=== PATIENT | female | born 1980 | race Caucasian/White ===

== ENCOUNTER → 2023-12-24 06:19 | Day surgery (SDC) | payer OTHER, SELFPAY | LOC: GI 06:19 | PROVIDERS: ATTENDING PHYSICIAN Specialist | DX: R19.4 Change in bowel habit (principal); D12.0 Benign neoplasm of cecum; D12.3 Benign neoplasm of transverse colon; D12.2 Benign neoplasm of ascending colon | CPT/HCPCS: 45385; 45380; 88305 ==

== ENCOUNTER → 2024-10-04 14:02 | Outpatient (REF) | payer OTHER, SELFPAY | LOC: WDC 14:02 | PROVIDERS: ATTENDING PHYSICIAN Obstetrics & Gynecology Gynecology; FAMILY PHYSICIAN Student in an Organized Health Care Education/Training Program | DX: Z12.31 Encounter for screening mammogram for malignant neoplasm of breast (principal) | CPT/HCPCS: 77063; 77067 ==

== ENCOUNTER → 2024-11-14 13:12 | Outpatient (REF) | payer BC, SELFPAY | LOC: HWRAD 13:12 | PROVIDERS: ATTENDING PHYSICIAN Obstetrics & Gynecology Gynecology; FAMILY PHYSICIAN Student in an Organized Health Care Education/Training Program | DX: N93.9 Abnormal uterine and vaginal bleeding, unspecified (principal) | CPT/HCPCS: 76830; 76856 ==

== ENCOUNTER → 2024-11-22 14:51 | Outpatient (REF) | payer BC, SELFPAY | LOC: DHSLP 14:51 | PROVIDERS: ATTENDING PHYSICIAN Internal Medicine; FAMILY PHYSICIAN Student in an Organized Health Care Education/Training Program | DX: G47.33 Obstructive sleep apnea (adult) (pediatric) (principal) | CPT/HCPCS: 95800 ==

== ENCOUNTER → 2025-02-01 08:53 | Outpatient (REF) | payer BC, SELFPAY | LOC: DHSLP 08:53 | PROVIDERS: ATTENDING PHYSICIAN Internal Medicine; FAMILY PHYSICIAN Student in an Organized Health Care Education/Training Program | DX: G47.00 Insomnia, unspecified (principal) | CPT/HCPCS: 95810 ==

== ENCOUNTER → 2025-02-02 11:29 | Outpatient (REF) | payer BC, SELFPAY | LOC: DHSLP 11:29 | PROVIDERS: ATTENDING PHYSICIAN Internal Medicine; FAMILY PHYSICIAN Student in an Organized Health Care Education/Training Program | DX: G47.11 Idiopathic hypersomnia with long sleep time (principal) | CPT/HCPCS: 95805 ==

== ENCOUNTER 2025-08-01 15:26 | Emergency (ER) | payer BC, SELFPAY ==
[2025-08-01 15:29] VITALS: BP 103/56
[2025-08-01 15:57] LABS: Hematocrit 41.0 % (37.0-47.0); Hemoglobin 13.9 g/dL (12.0-16.0); Mean Corp Hgb Conc. 33.9 g/dL (33.0-37.0); Mean Corpuscular Volume 91.1 fL (81.0-99.0); Nucleated Red Blood Cells % 0 %; Platelet Count 177 10^3/uL (130-400); Red Cell Dist. Width 12.7 % (11.5-14.5)
[2025-08-01 16:11] LABS: HCG, Serum Qualitative Screen Negative
[2025-08-01 16:23] LABS: ALT (SGPT) 34 U/L (0-35); AST (SGOT) 32 U/L (14-36); Albumin 4.6 g/dl (3.5-5.0); Alkaline Phosphatase 44 U/L (38-126); Blood Urea Nitrogen 16 mg/dl (7-17); Calcium 9.3 mg/dl (8.4-10.2); Carbon Dioxide 27 mmol/L (22-30); Chloride 103 mmol/L (98-107); Glucose 113 mg/dl (70-99); Lipase 341 U/L (23-300); Potassium 4.1 mmol/L (3.5-5.1); Sodium 135 mmol/L (135-145); Total Protein 7.2 g/dl (6.3-8.2); eGFR > 60.00
--- NOTE | 2025-08-01 19:11 | ED.GENMED ---
History of Present Illness
General
Chief Complaint: Fainting/Passed Out
Source: patient
Exam Limitations: none
Time Seen by Provider: 08/01/25 19:04
History of Present Illness
History of Present Illness:
See MDM
Past History
Past History
ED Past Medical History: Hypothyroidism and Other (Irregular menses/infertility); Negative Asthma, HTN, Hypercholesterolemia or NIDDM
ED Past Surgical History: Gynecological (D&C)
Social History
Tobacco: Non-smoker
Alcohol: Occasional
Personal:
Living: with family
Employment: Not employed (Homemaker)
Family History
Family History: Other (Noncontributory)
Phy Exam
Physical Exam
Physical Exam:
See MDM
Course
Orders/Labs/Results
Orders:
Orders
08/01/25 15:32
Electrocardiogram (*1) Urgent
Reason for Study: Abdominal Pain
EKG- Treatment ONCE
Test Result ONCE
08/01/25 15:45
Complete Blood Count/With Diff Urgent
Comprehensive Metabolic Panel Urgent
HCG, Serum Qualitative Screen Urgent
Comment: Notify provider if positive test present
Lipase Urgent
08/01/25 19:10
0.9% Sodium Chloride 1000 ml [Nss] 1,000 ml IV BOLUS
Ketorolac [Toradol] 30 mg IV NOW STA
Ondansetron Injectable [Zofran] 4 mg IV NOW STA
Abnormal Lab Results
08/01/25
15:45
Absolute Neuts (auto) 7.9 H 10^3/uL
(1.4-6.5)
Absolute Lymphs (auto) 0.3 L 10^3/uL
(1.2-3.4)
Neutrophils % 91.8 H %
(42.2-75.2)
Lymphocytes % 3.1 L %
(20.5-51.1)
Glucose 113 H mg/dl
(70-99)
Lipase 341 H U/L
(23-300)
08/01/25 15:45
08/01/25 15:45
Vital Signs
Initial and Last Documented VS:
Initial Vital Signs
Temp Pulse Resp BP Pulse Ox
97.8 F 58 18 103/56 99
08/01/25 15:29 08/01/25 15:29 08/01/25 15:29 08/01/25 15:29 08/01/25 15:29
Last Documented Vital Signs
Temp Pulse Resp BP Pulse Ox
97.8 F 58 18 103/56 99
08/01/25 15:29 08/01/25 15:29 08/01/25 15:29 08/01/25 15:29 08/01/25 19:14
MDM/Problems Addressed
Differential Diagnosis Includes:
Note:
CHIEF COMPLAINT(S)
Syncopal episode
HISTORY OF PRESENT ILLNESS
The patient is a 45-year-old female presenting with a syncopal episode. She reports multiple sick contacts at home, experiencing an overwhelming sense of nausea, and subsequently vomiting. On attempting to stand, she felt weak and woozy, leading her
spouse to guide her to the floor. The patient denies seizure-like activity. She currently complains of a headache, nausea, and diarrhea.
EXTERNAL RECORDS REVIEWED
According to prior lab work, mild elevation in lipase was noted, but results were otherwise within normal limits.
PHYSICAL EXAM
General: Alert, no acute distress.
Skin: Warm, dry.
Head: Normocephalic, atraumatic
Neck: Appears supple, trachea midline.
Eyes, Ears, Nose, Mouth, and Throat: Dry mucous membranes
Cardiovascular: No signs of cyanosis
Respiratory: Respirations are non-labored.
Abdomen: Non-distended. Soft and nontender
Musculoskeletal: No deformities
Neurological: No focal neurological deficit observed.
Psychiatric: Cooperative, appropriate mood and affect.
ELECTROCARDIOGRAM (EKG)
My independent EKG interpretation is sinus rhythm.
PLAN
The discussion included the likelihood of viral gastroenteritis. We agreed on managing her symptoms with antiemetics (ondansetron) and increased fluid intake.
DIFFERENTIAL DIAGNOSIS
The Differential Diagnosis includes, in no particular order and is not limited to:
- Viral gastroenteritis
- Dehydration
- Hypotension
- Electrolyte imbalance
- Gastrointestinal infection
- Orthostatic hypotension
- Vasovagal syncope
- Food poisoning
- Medication side effects
- Migraine
SUMMARY OF ENCOUNTER
The patient presented to the emergency department following a syncopal episode accompanied by nausea, vomiting, and diarrhea. Examination and previous lab results were reviewed, revealing mild lipase elevation without other significant findings. An
EKG showed sinus rhythm. Symptoms were discussed in relation to likely viral gastroenteritis, and symptomatic treatment was initiated involving antiemetic medications and hydration.
MEDICAL DECISION MAKING
- Complexity of Data Reviewed: Chronic conditions affecting care not established.
- Data:
Category 1: Previous lab work reviewed revealed mild lipase elevation.
Category 2: My independent interpretation of the EKG showed sinus rhythm.
- Risk: Prescription medication was prescribed (ondansetron for nausea).
DIAGNOSIS
- Viral gastroenteritis (ICD-10: A08.4)
- Syncope (ICD-10: R55)
Disposition:
SUMMARY OF ENCOUNTER
The patient, a 45-year-old female, presented to the emergency department with a syncopal episode following nausea and vomiting. The patient appeared well and non-toxic upon examination. She reported similar symptoms in family members, suggesting a
likely viral etiology. Previous similar cases in her household resolved with symptomatic care, indicating probable improvement in her condition with appropriate treatment.
EMERGENCY TREATMENTS ADMINISTERED
The patient received intravenous fluids, intravenous ondansetron, and intravenous ketorolac for symptom management.
PLAN
The plan includes administering a PO challenge before discharge to ensure the patients ability to tolerate oral intake. The patient is expected to manage symptoms at home with increased hydration and prescribed antiemetics.
INDEPENDENT REVIEW OF LABS AND INTERPRETATION OF TESTS
My independent interpretation of the EKG shows sinus rhythm without acute abnormalities.
MEDICATION RECONCILIATION
The patient was administered intravenous ondansetron and intravenous ketorolac during the emergency visit. No prescriptions were indicated upon discharge.
MEDICAL DECISION MAKING
-Complexity of Data Reviewed:
Viral gastroenteritis, dehydration, hypotension, electrolyte imbalance, gastrointestinal infection, orthostatic hypotension, vasovagal syncope, food poisoning, medication side effects, and migraine were considered in the differential diagnosis.
-Data:
Category 1: Previous lab work reviewed for mild lipase elevation. Independent interpretation of the EKG.
Category 2: Education on independent interpretation of EKG results provided.
-Risk:
Prescription medication was administered (intravenous ondansetron) for nausea management.
DIAGNOSIS
- Viral gastroenteritis (ICD-10: A08.4)
- Syncope (ICD-10: R55)
*Pulse Oximetry
SaO2: 99
Oxygen Mode of Delivery: Room air
Patient hypoxic: no
*EKG
Interpretation: normal (Sinus bradycardia at 49 bpm, normal axis, no ST elevation, no ectopy)
*Critical Care Note
Total Time (30-74mins, 75-104mins- exclusive of procedures): Not Applicable
ED Attending Note
-
Portions of this chart may have been created with voice recognition software.� Occasional wrong word or��sound alike� substitutions may have occurred due to the inherent limitations of voice recognition software.
Discharge Plan
Departure
Patient Disposition: Home (Routine Discharge)
Date of Disposition: 08/01/25
Time of Disposition: 19:15
Patient with high blood pressure during this ER visit?: No
Discharge Problem:
Gastroenteritis
Instructions: Viral gastroenteritis in adults
Prescriptions:
New
ondansetron 4 mg Tablet,Disintegrating
4 mg PO BIDPRN PRN (Reason: nausea/vomiting) Qty: 10 0RF
No Action
levothyroxine 75 MCG tablet
75 mcg PO DAILY
PNV no.95-ferrous fumarate-FA [] 1 EACH tablet
1 ea PO DAILY
ibuprofen 600 MG tablet
600 mg PO Q4HPRN PRN (Reason: moderate pain/cramps) 0RF
ondansetron HCl 4 mg tablet
4 mg PO TID PRN (Reason: nausea and vomiting) Qty: 10 0RF
Referrals:
Ophelia Carmona PA-C [Family Provider, Family Practice]
Activity Restrictions/Additional Instructions:
Please return for any worsening symptoms.
You may return at any time if you have further concerns.
Please follow up with your doctor at the first available appointment, preferably this week.
Thank you for choosing [facility].
Interventions
Interventions:
*Risk Screen - Suicide Last Done: 08/01/25 15:29
*ED Influenza Vaccine History Last Done: 08/01/25 15:29
Discharge Date and Time
Print Language: WELSH
[2025-08-01 19:15] VITALS: BP 112/54
[2025-08-01] MEDS: TORADOL 30 MG IV (19:24)
[2025-08-01] MEDS: NSS 1000 IV (19:24)
[2025-08-01] MEDS: ZOFRAN 4 MG IV (19:25)
[2025-08-01 20:06] VITALS: BP 101/54
== END 2025-08-01 20:16 | disposition home or self-care (01) ==
LOC: EMR 15:26
PROVIDERS: EMERGENCY PHYSICIAN Student in an Organized Health Care Education/Training Program; FAMILY PHYSICIAN Student in an Organized Health Care Education/Training Program
DX: A08.4 Viral intestinal infection, unspecified (principal); R55 Syncope and collapse; R11.2 Nausea with vomiting, unspecified; E03.9 Hypothyroidism, unspecified
CPT/HCPCS: 96374; 96375; 96361; 99284; 80053; 83690; 84703; 85025; 93005